=== PATIENT | female | born 1950 | race Caucasian/White ===

== ENCOUNTER 2023-01-27 19:03 | Inpatient (IN) | payer MEDICARE, OTHER ==
[~2023-01-27] VITALS: Ht 157.4 cm; Wt 64.3 kg
[2023-01-27] MEDS ORDERED: LIDOCAINE UROJET 2% GEL 10 ML PKG TOP ONE (19:15)
[2023-01-27] MEDS ORDERED: HYDROmorphone INJECTION 2 MG/ML VIAL IV ONE (19:15)
[2023-01-27] MEDS ORDERED: LACTATED RINGERS 1,000 ML 1,000 ML IV ONE (19:15)
--- NOTE | 2023-01-27 19:18 | ED Fall/Injury ---
General Stated Complaint: FALL Source: patient, EMS History of Present Illness Date Seen by Provider: Jan 27, 2023 Time Seen by Provider: 19:05 Initial Comments PT ARRIVES VIA EMS FROM HOME PT WAS GOING DOWN OUTSIDE STEPS, AND MISSED THE LAST STEP AND FELL, INJURING HER RIGHT THIGH EMS REPORTS OBVIOUS FEMUR DEFORMITY AT THE SCENE, AND TRACTION SPLINT WAS PLACED WITH IMPROVED ALIGNMENT, PER EMS NO PARESTHESIAS OR DISTAL MOTOR DEFICITS PT DENIES HITTING HER HEAD OR HAVING LOSS OF CONSCIOUSNESS NO CHEST PAIN OR SHORTNESS OF BREATH NO ABDOMINAL PAIN PT DOES HAVE SOME PAIN IN LOWER BACK AND RIGHT HIP AREA PT IS ON 81 MG ASPIRIN, NO OTHER BLOOD THINNERS PT HAS HTN, AND 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 ON [place] FOR NEUROPATHY EMS GAVE 150 MCG FENTANYL AND 80 MG KETAMINE PRIOR TO ARRIVAL LAST ATE AROUND 1800--THIS OCCURRED RIGHT AFTER SHE FINISHED EATING. SHE WAS GOING OUTSIDE TO FEED HER CATS AND WAS DISTRACTED BY ONE OF THE CATS WHEN SHE FELL. PCP: DR. Yan LOPES IN [place]. Allergies and Home Medications Allergies Coded Allergies: clindamycin (Verified Allergy, Unknown, 01/27/23) Patient Home Medication List Home Medication List Reviewed: Yes Review of Systems Review of Systems Constitutional: no symptoms reported Respiratory: no symptoms reported Cardiovascular: no symptoms reported Gastrointestinal: no symptoms reported Genitourinary: no symptoms reported Musculoskeletal: see HPI Skin: no symptoms reported Psychiatric/Neurological: No Symptoms Reported Past Wfscedf-[id number]-Hvlfqo Hx Past Medical History Cardiac: Yes Hypertension Physical Exam Vital Signs Vital Signs - First Documented 01/27/23 19:21 Temp 35.4 Pulse 76 Resp 20 B/P (MAP) 147/78 (101) Pulse Ox 98 O2 Delivery Room Air Capillary Refill : Height, Weight, BMI Height: '" Weight: lbs. oz. kg; BMI Method: General Appearance: WD/WN, no apparent distress, other (SCREAMS WITH SLIGHTEST MOVEMENT. ) HEENT: PERRL/EOMI Neck: non-tender, full range of motion, supple, normal inspection Cardiovascular: normal peripheral pulses, regular rate, rhythm, no murmur Respiratory: chest non-tender, normal breath sounds, no respiratory distress, no accessory muscle use Peripheral Pulses: 2+ Dorsalis Pedis (R), 2+ Left Dors-Pedis (L) Gastrointestinal: normal bowel sounds, non tender, soft Back: no CVA tenderness, other (LUMBAR TENDERNESS, LEFT POSTERIOR ILIAC TENDERNESS) Extremities: normal capillary refill, other (RIGHT HIP AND FEMUR TENDERNESS. RIGHT LEG INTERNALLY ROTATED IN TRACTION DEVICE. DISTAL MOTOR/SENSORY/VASCULAR INTACT, WITH STRONG DORSALIS AND PEDAL PULSES ) Neurologic/Psychiatric: finish patcher II-XII nml as tested, no motor/sensory deficits, alert, normal mood/affect, oriented x 3 Skin: normal color, warm/dry [place] Coma Score Best Eye Response: (4) Open Spontaneously Best Verbal Response: (5) Oriented Best Motor Response: (6) Obeys Commands [place] Total: 15 Progress/Results/Core Measures Results/Orders Lab Results Laboratory Tests Test 01/27/23 19:10 01/27/23 19:34 Range/Units White Blood Count 6.8 4.3-11.0 10^3/uL Red Blood Count 4.45 3.80-5.11 10^6/uL Hemoglobin 12.7 11.5-16.0 g/dL Hematocrit 38 35-52 % Mean Corpuscular Volume 86 80-99 fL Mean Corpuscular Hemoglobin 29 25-34 pg Mean Corpuscular Hemoglobin Concent 33 32-36 g/dL Red Cell Distribution Width 15.0 H 10.0-14.5 % Platelet Count 490 H 130-400 10^3/uL Mean Platelet Volume 8.7 L 9.0-12.2 fL Immature Granulocyte % (Auto) 0 % Neutrophils (%) (Auto) 60 42-75 % Lymphocytes (%) (Auto) 27 12-44 % Monocytes (%) (Auto) 10 0-12 % Eosinophils (%) (Auto) 2 0-10 % Basophils (%) (Auto) 0 0-10 % Neutrophils # (Auto) 4.1 1.8-7.8 10^3/uL Lymphocytes # (Auto) 1.9 1.0-4.0 10^3/uL Monocytes # (Auto) 0.7 0.0-1.0 10^3/uL Eosinophils # (Auto) 0.1 0.0-0.3 10^3/uL Basophils # (Auto) 0.0 0.0-0.1 10^3/uL Immature Granulocyte # (Auto) 0.0 0.0-0.1 10^3/uL Percent Immature Platelet Fraction 1.2 0.0-7.6 % Prothrombin Time 12.2 12.2-14.7 SEC INR Comment 0.9 0.8-1.4 Activated Partial Thromboplast Time 23 L 24-35 SEC Sodium Level 132 L 135-145 MMOL/L Potassium Level 3.7 3.6-5.0 MMOL/L Chloride Level 103 98-107 MMOL/L Carbon Dioxide Level 18 L 21-32 MMOL/L Anion Gap 11 5-14 MMOL/L Blood Urea Nitrogen 11 7-18 MG/DL Creatinine 0.82 0.60-1.30 MG/DL Estimat Glomerular Filtration Rate 75 BUN/Creatinine Ratio 13 Glucose Level 125 H 70-105 MG/DL Calcium Level 9.6 8.5-10.1 MG/DL Corrected Calcium 9.5 8.5-10.1 MG/DL Magnesium Level 2.1 1.6-2.4 MG/DL Total Bilirubin 0.4 0.1-1.0 MG/DL Aspartate Amino Transf (AST/SGOT) 26 5-34 U/L Alanine Aminotransferase (ALT/SGPT) 17 0-55 U/L Alkaline Phosphatase 103 40-136 U/L Total Protein 7.0 6.4-8.2 GM/DL Albumin 4.1 3.2-4.5 GM/DL Serum Alcohol < 10 <10 MG/DL Urine Color YELLOW Urine Clarity CLEAR Urine pH 6.0 5-9 Urine Specific [place] 1.015 L 1.016-1.022 Urine Protein NEGATIVE NEGATIVE Urine Glucose (UA) NEGATIVE NEGATIVE Urine Ketones NEGATIVE NEGATIVE Urine Nitrite NEGATIVE NEGATIVE Urine Bilirubin NEGATIVE NEGATIVE Urine Urobilinogen 0.2 < = 1.0 MG/DL Urine Leukocyte Esterase NEGATIVE NEGATIVE Urine RBC (Auto) NEGATIVE NEGATIVE Urine RBC NONE /HPF Urine WBC NONE /HPF Urine Squamous Epithelial Cells NONE /HPF Urine Crystals NONE /LPF Urine Bacteria TRACE /HPF Urine Casts NONE /LPF Urine Mucus NEGATIVE /LPF Urine Culture Indicated NO Urine Opiates Screen NEGATIVE NEGATIVE Urine Oxycodone Screen NEGATIVE NEGATIVE Urine Methadone Screen NEGATIVE NEGATIVE Urine Barbiturates Screen NEGATIVE NEGATIVE Ur Tricyclic Antidepressants Screen NEGATIVE NEGATIVE Urine Phencyclidine Screen NEGATIVE NEGATIVE Urine Amphetamines Screen NEGATIVE NEGATIVE Urine Methamphetamines Screen NEGATIVE NEGATIVE Urine Benzodiazepines Screen NEGATIVE NEGATIVE Urine Cocaine Screen NEGATIVE NEGATIVE Urine Cannabinoids Screen NEGATIVE NEGATIVE My Orders Orders - DEVON SPENCER DO Ct Thoracic/Lumbar Spine Wo (01/27/23 19:10) Chest 1 View, Ap/Pa Only (01/27/23 19:10) Femur, Right, 2 Views (01/27/23 19:10) Pelvis 1 To 2 Views (01/27/23 19:10) Alcohol (01/27/23 19:10) Cbc And Automated Diff (01/27/23 19:10) Comprehensive Metabolic Panel (01/27/23 19:10) Drug Screen Stat (Urine) (01/27/23 19:10) Magnesium (01/27/23 19:10) Protime With Inr (01/27/23 19:10) Partial Thromboplastin Time (01/27/23 19:10) Ua Culture If Indicated (01/27/23 19:10) Ed Iv/Invasive Line Start (01/27/23 19:10) Lactated Ringers 1,000 Ml (Lactated Ring (01/27/23 19:15) Hydromorphone Injection (Hydromorphone (01/27/23 19:15) Catheter(Urinary) Insert & Ass 03,15 (01/27/23 19:10) Monitor-Rhythm Ecg Trace Only (01/27/23 19:10) Lidocaine 2% (Urojet) (Lidocaine 2% (Uro (01/27/23 19:15) Diazepam Injection (Diazepam Injection (01/27/23 20:45) Ed Admission (Communication) (01/27/23 20:44) Medications Given in ED Current Medications Medications Dose Ordered Sig/Kehinde Route Start Time Stop Time Status Last Admin Dose Admin Diazepam 2.5 mg ONCE ONCE IVP 01/27/23 20:45 01/27/23 20:46 DC 01/27/23 20:46 2.5 MG Hydromorphone HCl 0.5 mg ONCE ONCE IV 01/27/23 19:15 01/27/23 19:16 DC 01/27/23 19:16 0.5 MG Lactated Ringer's 1,000 ml @ 0 mls/hr Q0M ONCE IV 01/27/23 19:15 01/27/23 19:16 DC 01/27/23 19:16 0 MLS/HR Lidocaine HCl 10 ml ONCE ONCE TOP 01/27/23 19:15 01/27/23 19:16 DC 01/27/23 19:16 10 ML Vital Signs/I&O 01/27/23 19:21 Temp 35.4 Pulse 76 Resp 20 B/P (MAP) 147/78 (101) Pulse Ox 98 O2 Delivery Room Air Progress Progress Note : Progress Note VITALS ON ARRIVAL: TEMP 35.4=95.8, HR 76, RR 20, BP 147/78, O2 SAT 98% ON ROOM AIR GIVEN: -IV FLUIDS -DILAUDID--PAIN MUCH IMPROVED -VALIUM FOR MUSCLE SPASMS XRAYS SHOW PROXIMAL FEMUR FRACTURE NO OTHER INJURIES IDENTIFIED AT THIS TIME CT OF SPINE DID NOT SHOW ANY ACUTE TRAUMATIC PROCESS VITALS STABLE, AND PAIN IS CONTROLLED AT TIME OF ADMIT. DISCUSSED TEST RESULTS, NEED FOR ADMIT AND LIKELY WILL GO TO SURGERY TOMORROW MORNING. PT IS AGREEABLE TO PLAN NO PRIOR VISITS HERE Diagnostic Imaging Comments CT SCAN THORACIC/LUMBAR SPINE--PER RADIOLOGIST REPORT AT 2009 FINDINGS: There is normal height and alignment throughout the thoracic and lumbar spine. Multilevel degenerative findings predominantly in the lumbar spine noted with bilateral facet hypertrophy throughout. Large spur seen anteriorly. Marked degenerative findings noted at the facets at L4-L5 and L5-S1. No acute fractures or compression deformities. No significant subluxations. The visualized sacroiliac joints demonstrate sclerosis left worse than right perhaps due to prior history of sacroiliitis. Visualized intrathoracic structures demonstrate a nodule in the right upper lobe posteriorly measuring a centimeter in size. Multiple sub-centimeter nodularity seen throughout the left upper lobe. Within the intra-abdominal structures no acute abnormalities appreciated. IMPRESSION: 1. No acute osseous abnormality in the thoracic or lumbar spine with marked degenerative changes in the lower lumbar region. 2. Suspicious nodule in the right upper lobe with multiple less than 5 mm nodules in the left upper lobe. Nonemergent dedicated CT imaging of the chest could further evaluate. ALL PER RADIOLOGIST REPORTS: AT 2129 CXR-- FINDINGS: The cardiomediastinal silhouette is unremarkable. The pulmonary vasculature is within normal limits. The lungs and pleural spaces are clear. IMPRESSION: No evidence of an acute cardiopulmonary process. PELVIS-- Findings: Single view of the pelvis. Kelsey catheter noted. Left hip joint unremarkable. Right hip intact however there is a laterally angulated displaced and foreshortened fracture of the proximal femoral diaphysis. Impression: 1. Proximal right femoral fracture. XRAYS RIGHT FEMUR-- Findings: 2 views of the femur. There is a angulated and displaced fracture of the proximal femoral diaphysis. Foreshortening at the fracture site is seen with anterior displacement and angulation of the proximal femur in relation to the distal femur. Single lateral view of the knee demonstrates an intact joint, limited given the lack of frontal view. Impression: 1. Proximal femoral fracture displaced and angulated as above. Reviewed: Reviewed by Me Departure Communication (Admissions) 2010--SPOKE WITH DR. STEPHENSON, ORTHOPEDIC SURGEON. HE WILL REVIEW FILMS AND CALL BACK 2024--SPOKE WITH DR. STEPHENSON, HE ADVISES TO ADMIT TO HOSPITALIST, AND PLANS ON TAKING TO SURGERY IN THE MORNING. 2029--DISCUSSED WITH DR. RAMOS, HOSPITALIST, ACCEPTS PT FOR ADMIT. SHE WILL DO ADMIT ORDERS. Impression Primary Impression: Closed fracture of right femur Additional Impressions: Fall down steps HTN (hypertension) Neuropathy PULMONARY NODULES NOTED ON CT SCAN Disposition: ADMITTED INPATIENT Condition: Improved Admissions Decision to Admit Reason: Admit from ER (General) Decision to Admit/Date: Jan 27, 2023 Time/Decision to Admit Time: 20:25 DEVON SPENCER DO Jan 27, 2023 19:18
[2023-01-27 19:19] LABS: EOSINOPHILS # (AUTO) 0.1 10^3/uL (0.0-0.3)
[2023-01-27 19:21] LABS: BASOPHILS % (AUTO) 0 % (0-10); EOSINOPHILS % (AUTO) 2 % (0-10); HEMATOCRIT 38 % (35-52); HEMOGLOBIN 12.7 g/dL (11.5-16.0); LYMPHOCYTES # (AUTO) 1.9 10^3/uL (1.0-4.0); LYMPHOCYTES % (AUTO) 27 % (12-44); MEAN CORPUSCULAR HEMOGLOBIN 29 pg (25-34); MEAN CORPUSCULAR HGB CONC 33 g/dL (32-36); MEAN CORPUSCULAR VOLUME 86 fL (80-99); MEAN PLATELET VOLUME 8.7 fL (9.0-12.2); MONOCYTES # (AUTO) 0.7 10^3/uL (0.0-1.0); MONOCYTES % (AUTO) 10 % (0-12); NEUTROPHILS # (AUTO) 4.1 10^3/uL (1.8-7.8); NEUTROPHILS % (AUTO) 60 % (42-75); PLATELET COUNT 490 10^3/uL (130-400); WHITE BLOOD COUNT 6.8 10^3/uL (4.3-11.0)
[2023-01-27 19:37] LABS: INR 0.9 (0.8-1.4); PROTHROMBIN TIME PATIENT 12.2 SEC (12.2-14.7)
[2023-01-27 19:50] LABS: BILIRUBIN,URINE NEGATIVE (NEGATIVE); CLARITY,URINE CLEAR; COLOR,URINE YELLOW; GLUCOSE, URINE (UA) NEGATIVE (NEGATIVE); KETONES,URINE NEGATIVE (NEGATIVE); NITRITE,URINE NEGATIVE (NEGATIVE); PROTEIN,URINE NEGATIVE (NEGATIVE)
[2023-01-27 19:51] LABS: BACTERIA,URINE TRACE /HPF; LEUKOCYTE ESTERASE ,URINE NEGATIVE (NEGATIVE)
[2023-01-27 19:51] LABS: ALANINE AMINOTRANSFERASE 17 U/L (0-55); ALBUMIN 4.1 GM/DL (3.2-4.5); ALKALINE PHOSPHATASE 103 U/L (40-136); BILIRUBIN,TOTAL 0.4 MG/DL (0.1-1.0); BUN/CREATININE RATIO 13; CALCIUM 9.6 MG/DL (8.5-10.1); CARBON DIOXIDE 18 MMOL/L (21-32); CHLORIDE 103 MMOL/L (98-107); CREATININE SERUM 0.82 MG/DL (0.60-1.30); GFR ESTIMATED 75; GLUCOSE 125 MG/DL (70-105); MAGNESIUM 2.1 MG/DL (1.6-2.4); POTASSIUM 3.7 MMOL/L (3.6-5.0); SODIUM 132 MMOL/L (135-145)
--- NOTE | 2023-01-27 20:06 | Diagnostic Imaging Report ---
PROCEDURE: CT thoracic and lumbar spine without contrast. TECHNIQUE: Multiple contiguous axial images were obtained through the thoracic and lumbar spine without the use of intravenous contrast. Sagittal and coronal reformations were then performed. All CT scans use one or more of the following dose optimizing techniques: automated exposure control, MA and/or KvP adjustment based on a patient size and exam type, or iterative reconstruction. INDICATION: Back pain after injury. EXAMINATION: Thoracic and lumbar spine CT 01/27/2023 FINDINGS: There is normal height and alignment throughout the thoracic and lumbar spine. Multilevel degenerative findings predominantly in the lumbar spine noted with bilateral facet hypertrophy throughout. Large spur seen anteriorly. Marked degenerative findings noted at the facets at L4-L5 and L5-S1. No acute fractures or compression deformities. No significant subluxations. The visualized sacroiliac joints demonstrate sclerosis left worse than right perhaps due to prior history of sacroiliitis. Visualized intrathoracic structures demonstrate a nodule in the right upper lobe posteriorly measuring a centimeter in size. Multiple sub-centimeter nodularity seen throughout the left upper lobe. Within the intra-abdominal structures no acute abnormalities appreciated. IMPRESSION: 1. No acute osseous abnormality in the thoracic or lumbar spine with marked degenerative changes in the lower lumbar region. 2. Suspicious nodule in the right upper lobe with multiple less than 5 mm nodules in the left upper lobe. Nonemergent dedicated CT imaging of the chest could further evaluate. Dictated by: Dictated on workstation # [id number]
[2023-01-27 20:07] LABS: AMPHETAMINE SCREEN, URINE NEGATIVE (NEGATIVE); BARBITURATE SCREEN URINE NEGATIVE (NEGATIVE); CANNABINOID SCREEN, URINE NEGATIVE (NEGATIVE); COCAINE SCREEN URINE NEGATIVE (NEGATIVE); METHADONE STAT NEGATIVE (NEGATIVE); OPIATE SCREEN URINE NEGATIVE (NEGATIVE); OXYCODONE STAT NEGATIVE (NEGATIVE); TRICYCLIC ANTIDEPRESSANTS SCRE NEGATIVE (NEGATIVE)
--- NOTE | 2023-01-27 20:20 | Diagnostic Imaging Report ---
Indication: Pain after fall. Examination: Pelvis 01/27/2023 Findings: Single view of the pelvis. Kelsey catheter noted. Left hip joint unremarkable. Right hip intact however there is a laterally angulated displaced and foreshortened fracture of the proximal femoral diaphysis. Impression: 1. Proximal right femoral fracture. Dictated by: Dictated on workstation # [id number]
--- NOTE | 2023-01-27 20:21 | Diagnostic Imaging Report ---
INDICATION: Fall, pain EXAMINATION: Chest 01/27/2023 FINDINGS: The cardiomediastinal silhouette is unremarkable. The pulmonary vasculature is within normal limits. The lungs and pleural spaces are clear. IMPRESSION: No evidence of an acute cardiopulmonary process. Dictated by: Dictated on workstation # [id number]
--- NOTE | 2023-01-27 20:21 | Diagnostic Imaging Report ---
Indication: Fall, pain. Examination: Right femur 01/27/2023 Findings: 2 views of the femur. There is a angulated and displaced fracture of the proximal femoral diaphysis. Foreshortening at the fracture site is seen with anterior displacement and angulation of the proximal femur in relation to the distal femur. Single lateral view of the knee demonstrates an intact joint, limited given the lack of frontal view. Impression: 1. Proximal femoral fracture displaced and angulated as above. Dictated by: Dictated on workstation # [id number]
[2023-01-27] MEDS ORDERED: diazePAM INJ 10 MG/2 ML syringe IVP ONE (20:45)
[2023-01-27 22:08] VITALS: BP 131/63
[2023-01-27] MEDS ORDERED: MELATONIN 3 MG TABLET PO PRN (22:15)
[2023-01-27] MEDS ORDERED: CALCIUM CARBONATE 500 MG CHEW TABLET PO PRN (22:15)
[2023-01-27] MEDS ORDERED: oxyCODONE IMMEDIATE RELEASE 5 MG TABLET PO PRN (22:15)
[2023-01-27] MEDS ORDERED: LACTULOSE SYRUP 10GM/15ML 30ML UDC PO PRN (22:15)
[2023-01-27] MEDS ORDERED: MILK OF MAGNESIA 400 MG/5 ML 30 ML UDC PO PRN (22:15)
[2023-01-27] MEDS ORDERED: ONDANSETRON 4 MG ORAL DISSOLVE TABLET PO PRN (22:15)
[2023-01-27] MEDS ORDERED: diazePAM 2 MG TABLET PO PRN (22:15)
[2023-01-27] MEDS ORDERED: hydrALAZINE INJECTION 20 MG/ML VIAL IV PRN (22:15)
[2023-01-27] MEDS ORDERED: ONDANSETRON INJECTION 4 MG/2 ML (SDV) IV PRN (22:15)
[2023-01-27] MEDS ORDERED: ANTACID SUSPENSION 30 ML UDC PO PRN (22:15)
[2023-01-27] MEDS ORDERED: diazePAM INJ 10 MG/2 ML syringe IVP PRN (22:15)
[2023-01-27] MEDS ORDERED: diphenhydrAMINE INJ 50 MG/ML VIAL IVP PRN (22:15)
[2023-01-27] MEDS ORDERED: diphenhydrAMINE 25 MG TABLET PO PRN (22:15)
[2023-01-27] MEDS ORDERED: BISACODYL 10 MG SUPPOSITORY PR PRN (22:15)
[2023-01-27] MEDS ORDERED: ACETAMINOPHEN 325 MG TABLET PO PRN (22:15)
[2023-01-27 22:59] VITALS: BP 131/63
[2023-01-27] MEDS ORDERED: RT-ALBUTEROL SULF 2.5 MG/3 ML PRE-MIX VIAL INH PRN (23:15)
[2023-01-27 23:19] VITALS: BP 129/61
[2023-01-28] VITALS (13 sets, daily range): BP systolic 100–154; BP diastolic 43–83
[2023-01-28] MEDS: NS IV 1000 ML 1,000 ML IV SCH ×3 (00:17→20:29)
[2023-01-28] MEDS: HYDROmorphone INJECTION 2 MG/ML VIAL IV PRN ×4 (00:18→10:06)
[2023-01-28 06:21] LABS: BASOPHILS % (AUTO) 0 % (0-10); EOSINOPHILS # (AUTO) 0.1 10^3/uL (0.0-0.3); EOSINOPHILS % (AUTO) 1 % (0-10); HEMATOCRIT 34 % (35-52); HEMOGLOBIN 11.1 g/dL (11.5-16.0); LYMPHOCYTES # (AUTO) 0.9 10^3/uL (1.0-4.0); LYMPHOCYTES % (AUTO) 13 % (12-44); MEAN CORPUSCULAR HEMOGLOBIN 28 pg (25-34); MEAN CORPUSCULAR HGB CONC 33 g/dL (32-36); MEAN CORPUSCULAR VOLUME 86 fL (80-99); MEAN PLATELET VOLUME 9.1 fL (9.0-12.2); MONOCYTES # (AUTO) 0.7 10^3/uL (0.0-1.0); MONOCYTES % (AUTO) 10 % (0-12); NEUTROPHILS # (AUTO) 5.2 10^3/uL (1.8-7.8); NEUTROPHILS % (AUTO) 76 % (42-75); PLATELET COUNT 416 10^3/uL (130-400); WHITE BLOOD COUNT 6.8 10^3/uL (4.3-11.0)
[2023-01-28 06:30] LABS: ALBUMIN 3.1 GM/DL (3.2-4.5); POTASSIUM 4.2 MMOL/L (3.6-5.0)
[2023-01-28 06:32] LABS: CALCIUM 8.5 MG/DL (8.5-10.1)
[2023-01-28 06:33] LABS: TOTAL PROTEIN 5.3 GM/DL (6.4-8.2)
[2023-01-28 06:35] LABS: BILIRUBIN,TOTAL 0.4 MG/DL (0.1-1.0)
[2023-01-28 06:36] LABS: CREATININE SERUM 0.75 MG/DL (0.60-1.30)
--- NOTE | 2023-01-28 07:20 | Progress Note-Pre Operative ---
Pre-Operative Progress Note Date of Available H&P: Jan 28, 2023 Date H&P Reviewed: Jan 28, 2023 Time H&P Reviewed: 07:20 Changes from last HP none Pre-Operative Diagnosis: right femoral shaft fracture closed, displaced RAMEZ STEPHENSON MD Jan 28, 2023 07:20
--- NOTE | 2023-01-28 07:21 | Progress Note-Post Operative ---
Post-Operative Progess Note Surgeon (s)/Education Administrator (s) Surgeon RAMEZ STEPHENSON MD Education Administrator: Wally Randolph Pre-Operative Diagnosis right femoral shaft fracture closed, displaced Post-Operative Diagnosis right femoral shaft fracture closed, displaced Procedure & Operative Findings Date of Procedure 01/28/23 Procedure Performed/Findings right femur IM nail Anesthesia Type GETA Estimated Blood Loss Estimated blood loss (mL): 200ml Specimens/Packing Specimens Removed none Packing: none RAMEZ STEPHENSON MD Jan 28, 2023 07:21
--- NOTE | 2023-01-28 07:49 | CONSULTATION REPORT ---
DATE OF SERVICE: 01/28/2023 INPATIENT CONSULTATION REASON FOR CONSULTATION: Closed displaced right femoral shaft fracture. HISTORY OF PRESENT ILLNESS: The patient is a 72-year-old female who fell at home. She missed a step while outside landing on her right leg, presented to the Emergency Department where she was found to have a proximal right femoral shaft fracture. She denies antecedent pain. She has been treated with Fosamax in the remote past but not recently. She reports no paresthesias. PAST MEDICAL HISTORY: Breast cancer, neuropathy. PHYSICAL EXAMINATION: ORTHOPEDIC: The right lower extremity is shortened and externally rotated. She has intact dorsiflexion and plantarflexion of the toes. Sensation is symmetric. She has symmetric pulses. RADIOGRAPHS: Reveal a displaced right femoral shaft fracture proximally. IMPRESSION: Right femoral shaft fracture. PLAN: Right femur intramedullary nail. The risks, benefits, options, ramifications and recovery have been discussed at length with the patient. She understands and wishes to proceed. Job ID: [id number] DocumentID: [id number] Dictated Date: 01/28/2023 07:20:04 Faucets Assembler Date: 01/28/2023 07:47:00 Dictated By: RAMEZ STEPHENSON MD
--- NOTE | 2023-01-28 09:27 | History & Physical ---
IKER ROSENTHAL 01/28/23926: History of Present Illness History of Present Illness Reason for visit/HPI Vilma is a 72 yo F with a PMH of HTN, anemia and neuropathy who presented to the ED yesterday By EMS from home with a cc of right thigh pain due to a fall she'd sustained roughly 1 hour prior. Per EMS, the patient has an obvious femur deformity necessitated placement of a traction splint which improved alignement. Patient denied hitting or head or use of blood thinners other than aspirin. XR demonstrated proximal femur fracture without other injury and CT spine was negative for acute traumatic process. She was given dilaudid, valium and IVF and admitted inpatient for surgical evaluation. This morning, the reports some improvement in hip pain and muscle spasms but still rates overall pain in the region 09/01. Otherwise she is comfortable. She states orthopedic surgery is planning to operate around 1230 PM today. Date of Admission Jan 27, 2023 at 21:42 I consulted on this patient on 01/28/23 09:24 Attending Physician No,Local Physician Admitting Physician Admitting Physician: Brenda Ramos DO Attending Physician: Brenda Ramos DO Consult Allergies and Home Medications Allergies Coded Allergies: clindamycin (Verified Allergy, Unknown, 01/27/23) Patient Home Medication List Aspirin (Aspirin EC) 81 Mg Tablet., 81 MG PO DAILY, (Reported) Entered as Reported by: CONCHITA SANCHEZ on 01/28/231230 Last Action: Reviewed Calcium Carbonate (Calcium) 500 Mg Calcium (1250 Mg) Tablet, 500 MG PO DAILY, (Reported) Entered as Reported by: CONCHITA SANCHEZ on 01/28/231230 Last Action: Reviewed Cholecalciferol (Vitamin D3) (Vitamin D3) 25 Mcg (1000 Unit) Tablet, 25 MCG PO DAILY, (Reported) Entered as Reported by: CONCHITA SANCHEZ on 01/28/231230 Last Action: Reviewed Diclofenac Sodium (Diclofenac Sodium) 75 Mg Tablet., 75 MG PO BID PRN for PAIN-MILD (1-4), (Reported) Entered as Reported by: CONCHITA SANCHEZ on 01/28/231230 Last Action: Reviewed Dicyclomine HCl (Dicyclomine HCl) 20 Mg Tablet, 20 MG PO BID, (Reported) Entered as Reported by: CONCHITA SANCHEZ on 01/28/231230 Last Action: Reviewed Folic Acid (Folic Acid) 1 Mg Tablet, 1 MG PO DAILY, (Reported) Entered as Reported by: CONCHITA SANCHEZ on 01/28/231230 Last Action: Reviewed Lactobacillus Acidophilus (Probiotic) 10 Billion Cell Capsule, 1 EACH PO BID, (Reported) Entered as Reported by: CONCHITA SANCHEZ on 01/28/231230 Last Action: Reviewed Levothyroxine Sodium (Levothyroxine Sodium) 75 Mcg Tablet, 75 MCG PO DAILY, (Reported) Entered as Reported by: CONCHITA SANCHEZ on 01/28/231230 Last Action: Reviewed Lisinopril (Lisinopril) 20 Mg Tablet, 20 MG PO DAILY, (Reported) Entered as Reported by: CONCHITA SANCHEZ on 01/28/231230 Last Action: Reviewed Pregabalin (Pregabalin) 50 Mg Capsule, 50 MG PO DAILY, (Reported) Entered as Reported by: CONCHITA SANCHEZ on 01/28/231230 Last Action: Reviewed Past Cbqfxsj-Myguld-Hcbebp Hx Patient Social History Tobacco Use?: No Tobacco type used: Cigarettes Smoking Status: Former Smoker Smokeless Tobacco Frequency: Never a User Use of E-Cig and/or Vaping dev: No Use of E-Cig and/or Vaping Lew: Never a User Substance use?: No Alcohol Use?: No Pt feels they are or have been: No Immunizations Up To Date Date of Influenza Vaccine: Nov 27, 2022 First/Initial COVID19 Vaccinat: x5 Tetanus Booster (TDap): Less Than 5 Years Hepatitis A: No Hepatitis B: No Current Status status: No status: No Advance Directives: No Communicates: Verbally Primary Language: Angolan Preferred Spoken Language: Angolan Is interpretation needed?: No Past Medical History Hypertension Physical Exam Vital Signs Vital Signs - First Documented 01/27/23 01/27/23 19:21 22:59 Temp 35.4 Pulse 76 Resp 20 B/P (MAP) 147/78 (101) Pulse Ox 98 O2 Delivery Room Air FiO2 21 Capillary Refill : Less Than 3 Seconds Height, Weight, BMI Height: '" Weight: lbs. oz. kg; 25.95 BMI Method: General Appearance: No Apparent Distress Respiratory: Lungs Clear Cardiovascular: Regular Rate, Rhythm Gastrointestinal: Normal Bowel Sounds Neurologic/Psychiatric: Alert, Oriented x3 Skin: Normal Color, Warm/Dry Assessment/Plan Assessment and Plan Left hip pain Left femur fracture - CT spine 01/27 negative for acute traumatic process - Orthopedics planning for surgery at 1230 PM today - Continue IV fluids - Continue pain control Acute on chronic anemia - Hb 11.1 from 12.7 on admission - Likely due to hemodilution - Continue to monitor Admission Diagnosis Left femur fracture Clinical Quality Measures DVT/VTE Risk/Contraindication: Contraindications-Pharm: Other *list below* Other: or BRENDA RAMOS DO 01/29/23 0520: History of Present Illness History of Present Illness Reason for visit/HPI chief complaint: Fall with right hip fracture HPI: This is a 72-year-old female who has a past medical history of neuropathy who presented to the ER after sustaining a fall. She was found to have a right femoral fracture and will be repaired today. Date Seen by a Provider: Jan 28, 2023 Time Seen by a Provider: 11:00 Allergies and Home Medications Allergies Coded Allergies: clindamycin (Verified Allergy, Unknown, 01/27/23) Patient Home Medication List Home Medication List Reviewed: Yes Aspirin (Aspirin EC) 81 Mg Tablet., 81 MG PO DAILY, (Reported) Entered as Reported by: CONCHITA SANCHEZ on 01/28/231230 Last Action: Reviewed Calcium Carbonate (Calcium) 500 Mg Calcium (1250 Mg) Tablet, 500 MG PO DAILY, (Reported) Entered as Reported by: CONCHITA SANCHEZ on 01/28/231230 Last Action: Reviewed Cholecalciferol (Vitamin D3) (Vitamin D3) 25 Mcg (1000 Unit) Tablet, 25 MCG PO DAILY, (Reported) Entered as Reported by: CONCHITA SANCHEZ on 01/28/231230 Last Action: Reviewed Diclofenac Sodium (Diclofenac Sodium) 75 Mg Tablet., 75 MG PO BID PRN for PAIN-MILD (1-4), (Reported) Entered as Reported by: CONCHITA SANCHEZ on 01/28/231230 Last Action: Reviewed Dicyclomine HCl (Dicyclomine HCl) 20 Mg Tablet, 20 MG PO BID, (Reported) Entered as Reported by: CONCHITA SANCHEZ on 01/28/231230 Last Action: Reviewed Folic Acid (Folic Acid) 1 Mg Tablet, 1 MG PO DAILY, (Reported) Entered as Reported by: CONCHITA SANCHEZ on 01/28/231230 Last Action: Reviewed Lactobacillus Acidophilus (Probiotic) 10 Billion Cell Capsule, 1 EACH PO BID, (Reported) Entered as Reported by: CONCHITA SANCHEZ on 01/28/231230 Last Action: Reviewed Levothyroxine Sodium (Levothyroxine Sodium) 75 Mcg Tablet, 75 MCG PO DAILY, (Reported) Entered as Reported by: CONCHITA SANCHEZ on 01/28/231230 Last Action: Reviewed Lisinopril (Lisinopril) 20 Mg Tablet, 20 MG PO DAILY, (Reported) Entered as Reported by: CONCHITA SANCHEZ on 01/28/231230 Last Action: Reviewed Pregabalin (Pregabalin) 50 Mg Capsule, 50 MG PO DAILY, (Reported) Entered as Reported by: CONCHITA SANCHEZ on 01/28/231230 Last Action: Reviewed Past Wwoaase-Mliyhv-Mkeqab Hx Patient Social History Marrital Status: Employed/Student: retired Smoking Status: Never a Smoker Past Medical History Neuropathy Hypothyroidsim Review of Systems Constitutional: see HPI Physical Exam General Appearance: No Apparent Distress, WD/WN Eyes: Bilateral Eye Normal Inspection, Bilateral Eye PERRL, Bilateral Eye EOMI HEENT: PERRL/EOMI, Normal ENT Inspection, Pharynx Normal Neck: Full Range of Motion, Normal Inspection, Non Tender, Supple, Carotid Bruit Respiratory: Chest Non Tender, Lungs Clear, Normal Breath Sounds, No Accessory Muscle Use, No Respiratory Distress Cardiovascular: Regular Rate, Rhythm, No Edema, No Gallop, No JVD, No Murmur, Normal Peripheral Pulses Gastrointestinal: Normal Bowel Sounds, No Organomegaly, No Pulsatile Mass, Non Tender, Soft Back: Normal Inspection, No CVA Tenderness, No Vertebral Tenderness Extremity: Normal Capillary Refill, Normal Inspection, Normal Range of Motion (Except legs due to pain), Non Tender, No Calf Tenderness, No Pedal Edema Neurologic/Psychiatric: Alert, Oriented x3, No Motor/Sensory Deficits, Normal Mood/Affect Skin: Normal Color, Warm/Dry Lymphatic: No Adenopathy Assessment/Plan Assessment and Plan Assessment: Right femur fracture Severe neuropathy Hypothyroidism Plan: Repair today Check labs in morning Pain control IV fluids Kelsey catheter Inpatient rehab tomorrow Admission Diagnosis Admission Status: Inpatient Order (span 2 midnights) Reason for Inpatient Admission: Hip fracture Supervisory-Addendum Brief Verification & Attestation Participated in pt care: history, MDM, physical Personally performed: exam, history, MDM, supervision of care Care discussed with: Medical Student Procedures: n/a Results interpretation: Verified all documentation Verification and Attestation of Medical Student E/M Service A medical student performed and documented this service in my presence. I reviewed and verified all information documented by the medical student and made modifications to such information, when appropriate. I personally performed the physical exam and medical decision making. Brenda Ramos, Jan 29, 2023,05:20 IKER ROSENTHAL Jan 28, 2023 09:27 BRENDA RAMOS DO Jan 29, 2023 05:20
[2023-01-28] MEDS: DOCUSATE SODIUM 100 MG CAPSULE PO SCH ×2 (09:36→20:29)
[2023-01-28] MEDS: SENNOSIDES 8.6 MG TABLET PO SCH ×2 (09:36→20:29)
[2023-01-28] MEDS ORDERED: NALOXONE 0.4 MG/ML 1 ML VIAL IV PRN (11:15)
[2023-01-28] MEDS ORDERED: ONDANSETRON INJECTION 4 MG/2 ML (SDV) IVP PRN ×2 (11:15→12:45)
[2023-01-28] MEDS ORDERED: oxyCODONE/ACETAMINOPHEN 5/325MG TABLET PO PRN (11:15)
[2023-01-28] MEDS ORDERED: ceFAZolin INJECTION 2,000 MG in NS (IVPB) 50 ML 50 ML IV ONE (12:30)
[2023-01-28] MEDS ORDERED: LISI20TA26 PO (12:31)
[2023-01-28] MEDS ORDERED: PREG50CA66 PO (12:31)
[2023-01-28] MEDS ORDERED: CALC-823 PO (12:31)
[2023-01-28] MEDS ORDERED: DICL75TA2 PO (12:31)
[2023-01-28] MEDS ORDERED: LACT1CAP62 PO (12:31)
[2023-01-28] MEDS ORDERED: ASPI-1238 PO (12:31)
[2023-01-28] MEDS ORDERED: DICY20TA PO (12:31)
[2023-01-28] MEDS ORDERED: FOLI1TAB33 PO (12:31)
[2023-01-28] MEDS ORDERED: LEVO75TA6 PO (12:31)
[2023-01-28] MEDS ORDERED: CHOL10004 PO (12:31)
[2023-01-28] MEDS: HYDROmorphone INJECTION 2 MG/ML VIAL IVP PRN (12:35)
[2023-01-28] MEDS ORDERED: morphine INJ 10 MG/ML 1ML (SYR OR VIAL) IVP ONE (12:45)
[2023-01-28] MEDS ORDERED: HYDROmorphone INJECTION 2 MG/ML VIAL IV ONE (12:45)
[2023-01-28] MEDS ORDERED: BUPIVACAINE 0.25% 30 ML VIAL ONE (13:19)
[2023-01-28] MEDS ORDERED: dexAMETHasone INJ 10 MG/ML 1 ML VIAL ONE (13:20)
[2023-01-28] MEDS ORDERED: ONDANSETRON INJECTION 4 MG/2 ML (SDV) ONE (13:20)
[2023-01-28] MEDS ORDERED: proPOfol INJECTION 200 MG/20 ML VIAL IV ONE (13:20)
[2023-01-28] MEDS ORDERED: LIDOCAINE PF 2% 5 ML VIAL ONE (13:20)
[2023-01-28] MEDS ORDERED: fentaNYL INJECTION 100 MCG/2 ML VIAL ONE (13:20)
[2023-01-28] MEDS ORDERED: LACTATED RINGERS 1,000 ML 1,000 ML IV PRN (13:45)
[2023-01-28] MEDS ORDERED: PHENYLEPHRINE 100 MCG/ML 10 ML (ANESTHESIA) SYR ONE ×2 (13:50→14:43)
[2023-01-28] MEDS ORDERED: SEVOFLURANE (ULTANE) 15 ML INHAL SOLN ONE (14:43)
[2023-01-28] MEDS ORDERED: BUPIVACAINE 0.25% 30 ML VIAL INJ ONE (14:54)
[2023-01-28] MEDS ORDERED: HYDROmorphone INJECTION 2 MG/ML VIAL ONE (15:11)
--- NOTE | 2023-01-28 16:51 | Diagnostic Imaging Report ---
INDICATION: Femur fracture. Five views are obtained with the portable intensifier in surgery during intramedullary andra placement for femoral shaft fracture. 120.4 seconds of fluoroscopy time was used. 9.24 mGy and exposure. Intraoperative views demonstrate intramedullary andra in place in the femoral shaft with anatomic alignment of the proximal femoral shaft fracture. Fixation screw is seen in the femoral neck. IMPRESSION: Well-aligned femoral shaft fracture status post ORIF. Dictated by: Dictated on workstation # [id number]
[2023-01-28] MEDS: ceFAZolin INJECTION 2,000 MG in NS (IVPB) 50 ML 50 ML IV SCH (20:29)
--- NOTE | 2023-01-28 23:52 | OPERATIVE REPORT ---
DATE OF SERVICE: 01/27/2023 PREOPERATIVE DIAGNOSIS: Right proximal femoral shaft fracture, closed displaced. POSTOPERATIVE DIAGNOSIS: Right proximal femoral shaft fracture, closed displaced. PROCEDURE: Right femur intramedullary nail. SURGEON: Red Stephenson MD BLOOD COLLECTOR: Wally Randolph, who assisted throughout the procedure and closed the incisions. ANESTHESIA: General endotracheal by Dr. Guillen. ESTIMATED BLOOD LOSS: 200 mL. DRAINS: None. COMPLICATIONS: None. MATERIALS: Synthes TFN 380 mm x 11 mm nail with a 95 mm proximal screw and a 42 mm distal screw. The patient was transferred to recovery room, awake and stable condition. POSTOPERATIVE PLAN: 50% weightbearing, right lower extremity. STATEMENT OF MEDICAL NECESSITY: The patient is a 72-year-old female who fell at home and was found to have a proximal femoral shaft fracture on the right. The patient was counseled regarding treatment options and elected to proceed with surgical intervention. DESCRIPTION OF PROCEDURE: After risks and benefits of the procedure were discussed and questions were answered and informed consent was signed and placed on chart. The operative site was confirmed in the preoperative holding area initialed by surgeon. The patient was then transferred to the operating room and after adequate levels of general endotracheal anesthetic were obtained, a timeout was called, confirming the operative site. The patient was carefully placed on the fracture table and traction was applied. Fluoroscopy in the AP and lateral planes revealed a well-reduced fracture. The right hip and lower extremity were then prepped and draped in the usual sterile fashion. An incision was made from the proximal aspect of the greater trochanter extending proximally approximately 6 cm. The IT band was incised. The guidewire was passed and found to be in excellent position radiographically in the AP and lateral planes. This was then overreamed and then a long guidewire was passed across the fracture site. This was confirmed well positioned in the AP and lateral planes. The canal was then sequentially reamed up to a 12.5 mm. A 380 mm x 11 mm andra was then placed and this showed a well-reduced fracture and good length, through a percutaneous incision, the guidewire was passed into the femoral head. This was found to be in good position in the AP and lateral planes. This was then overdrilled and tapped, and a 95 mm screw was placed using the perfect [place] technique, a distal locking screw was placed in the dynamic slot. This was found to be well positioned in the AP and lateral planes. Fluoroscopy revealed well placed hardware, well reduced fracture. The wounds were copiously irrigated. The iliotibial band was closed proximally with a 0 Vicryl in a wtcwfm-qx-maraj interrupted fashion, 3-0 Vicryl was used to reapproximate subcutaneous tissue at the three incisions and mary anne were used for the skin. The incisions were infiltrated with plain Marcaine. A soft dressing was applied. The patient was transferred to the recovery room awake and in stable condition. Job ID: [id number] DocumentID: [id number] Dictated Date: 01/28/2023 14:43:26 Licensed Bondsman Date: 01/28/2023 23:50:00 Dictated By: RED STEPHENSON MD
[2023-01-29 03:38] VITALS: BP 98/56
[2023-01-29] MEDS: NS IV 1000 ML 1,000 ML IV SCH (04:27)
[2023-01-29] MEDS: ceFAZolin INJECTION 2,000 MG in NS (IVPB) 50 ML 50 ML IV SCH (04:43)
[2023-01-29 05:36] LABS: BASOPHILS % (AUTO) 0 % (0-10); EOSINOPHILS % (AUTO) 0 % (0-10); HEMATOCRIT 27 % (35-52); LYMPHOCYTES # (AUTO) 0.6 10^3/uL (1.0-4.0); LYMPHOCYTES % (AUTO) 7 % (12-44); MEAN CORPUSCULAR HEMOGLOBIN 29 pg (25-34); MEAN CORPUSCULAR HGB CONC 34 g/dL (32-36); MEAN CORPUSCULAR VOLUME 86 fL (80-99); MEAN PLATELET VOLUME 9.3 fL (9.0-12.2); MONOCYTES # (AUTO) 0.7 10^3/uL (0.0-1.0); MONOCYTES % (AUTO) 8 % (0-12); NEUTROPHILS # (AUTO) 7.3 10^3/uL (1.8-7.8); NEUTROPHILS % (AUTO) 85 % (42-75); PLATELET COUNT 372 10^3/uL (130-400); WHITE BLOOD COUNT 8.6 10^3/uL (4.3-11.0)
[2023-01-29 05:43] LABS: ALBUMIN 2.9 GM/DL (3.2-4.5); POTASSIUM 4.1 MMOL/L (3.6-5.0)
[2023-01-29 05:44] LABS: CALCIUM 7.9 MG/DL (8.5-10.1)
[2023-01-29 05:46] LABS: TOTAL PROTEIN 4.9 GM/DL (6.4-8.2)
[2023-01-29 05:47] LABS: BILIRUBIN,TOTAL 0.5 MG/DL (0.1-1.0)
[2023-01-29 05:49] LABS: CREATININE SERUM 0.78 MG/DL (0.60-1.30)
[2023-01-29] MEDS: HYDROmorphone INJECTION 2 MG/ML VIAL IVP PRN (06:09)
[2023-01-29] MEDS ORDERED: ETODOLAC 300 MG PO PRN (06:30)
[2023-01-29] MEDS ORDERED: LEVOTHYROXINE 75 MCG TABLET PO SCH (07:00)
--- NOTE | 2023-01-29 07:57 | Progress Note ---
Standard Progress Note Progress Notes/Assess & Plan Date Seen by a Provider: Jan 29, 2023 Time Seen by a Provider: 07:45 Progress/Assessment & Plan no complaints Laboratory Tests Test 01/29/23 05:09 Range/Units White Blood Count 8.6 4.3-11.0 10^3/uL Red Blood Count 3.11 L 3.80-5.11 10^6/uL Hemoglobin 9.0 L 11.5-16.0 g/dL Hematocrit 27 L 35-52 % Mean Corpuscular Volume 86 80-99 fL Mean Corpuscular Hemoglobin 29 25-34 pg Mean Corpuscular Hemoglobin Concent 34 32-36 g/dL Red Cell Distribution Width 15.2 H 10.0-14.5 % Platelet Count 372 130-400 10^3/uL Mean Platelet Volume 9.3 9.0-12.2 fL Immature Granulocyte % (Auto) 0 % Neutrophils (%) (Auto) 85 H 42-75 % Lymphocytes (%) (Auto) 7 L 12-44 % Monocytes (%) (Auto) 8 0-12 % Eosinophils (%) (Auto) 0 0-10 % Basophils (%) (Auto) 0 0-10 % Neutrophils # (Auto) 7.3 1.8-7.8 10^3/uL Lymphocytes # (Auto) 0.6 L 1.0-4.0 10^3/uL Monocytes # (Auto) 0.7 0.0-1.0 10^3/uL Eosinophils # (Auto) 0.0 0.0-0.3 10^3/uL Basophils # (Auto) 0.0 0.0-0.1 10^3/uL Immature Granulocyte # (Auto) 0.0 0.0-0.1 10^3/uL Sodium Level 131 L 135-145 MMOL/L Potassium Level 4.1 3.6-5.0 MMOL/L Chloride Level 104 98-107 MMOL/L Carbon Dioxide Level 21 21-32 MMOL/L Anion Gap 6 5-14 MMOL/L Blood Urea Nitrogen 8 7-18 MG/DL Creatinine 0.78 0.60-1.30 MG/DL Estimat Glomerular Filtration Rate 80 BUN/Creatinine Ratio 10 Glucose Level 127 H 70-105 MG/DL Calcium Level 7.9 L 8.5-10.1 MG/DL Corrected Calcium 8.8 8.5-10.1 MG/DL Total Bilirubin 0.5 0.1-1.0 MG/DL Aspartate Amino Transf (AST/SGOT) 20 5-34 U/L Alanine Aminotransferase (ALT/SGPT) 11 0-55 U/L Alkaline Phosphatase 73 40-136 U/L Total Protein 4.9 L 6.4-8.2 GM/DL Albumin 2.9 L 3.2-4.5 GM/DL Vital Signs Date Time Temp Pulse Resp B/P (MAP) Pulse Ox O2 Delivery O2 Flow Rate FiO2 01/29/23 07:00 76 01/29/23 03:38 36.5 83 18 98/56 (70) 97 Room Air 01/29/23 01:16 69 01/28/23 23:42 36.4 75 18 102/60 (74) 96 Room Air 01/28/23 20:19 36.8 86 19 102/64 (77) 98 Room Air 01/28/23 19:50 78 01/28/23 15:50 Room Air 01/28/23 15:50 36.6 20 104/61 (75) 98 Room Air 01/28/23 15:47 36.8 80 18 100/43 (62) 97 Room Air 01/28/23 15:45 Room Air 01/28/23 15:40 20 107/52 (70) 95 Room Air 01/28/23 15:30 20 107/52 (70) 95 Room Air 01/28/23 15:30 Room Air 01/28/23 15:20 20 104/55 (71) 100 OxyMask 2.00 01/28/23 15:15 OxyMask 2.00 01/28/23 15:10 20 112/64 (80) 100 OxyMask 2.00 01/28/23 15:00 OxyMask 3.00 01/28/23 15:00 97 Room Air 01/28/23 15:00 20 106/54 (71) 100 OxyMask 2.00 01/28/23 14:51 36.6 20 105/62 (76) 100 OxyMask 3.00 01/28/23 14:51 OxyMask 3.00 01/28/23 11:38 36.5 70 17 147/83 (104) 97 Room Air 01/28/23 08:15 36.4 66 17 152/83 (106) 97 Room Air 01/28/23 08:00 98 Room Air I & O 01/29/23 06:59 Intake Total 2600 ml Output Total 2850 ml Balance -250 ml RLE--dressing intact distal pulses sym sensation intact to light touch throughout s/p R femur IM andra mobilize RAMEZ STEPHENSON MD Jan 29, 2023 07:57
[2023-01-29] MEDS ORDERED: LACTOBACILLUS ACIDOPHILUS (PROBIOTIC) CAPSULE PO SCH (08:00)
[2023-01-29 08:05] VITALS: BP 144/65
[2023-01-29] MEDS: DOCUSATE SODIUM 100 MG CAPSULE PO SCH (08:38)
[2023-01-29] MEDS: SENNOSIDES 8.6 MG TABLET PO SCH (08:40)
[2023-01-29] MEDS ORDERED: DICYCLOMINE 10 MG CAPSULE PO SCH (09:00)
[2023-01-29] MEDS ORDERED: ENOXAPARIN 40 MG/0.4 ML SYRINGE SC SCH (09:00)
[2023-01-29] MEDS ORDERED: FOLIC ACID 1 MG TAB PO SCH (09:00)
[2023-01-29] MEDS ORDERED: CALCIUM CARBONATE 500 MG CHEW TABLET PO SCH (09:00)
[2023-01-29] MEDS ORDERED: VITAMIN D3 25 MCG (1,000 UNITS) TABLET PO SCH (09:00)
[2023-01-29] MEDS ORDERED: ASPIRIN enteric coated 81MG TABLET PO SCH (09:00)
[2023-01-29] MEDS ORDERED: PREGABALIN 50 MG CAPSULE PO SCH (09:00)
--- NOTE | 2023-01-29 09:09 | Occupational Therapy Eval ---
OT Evaluation-General/PLF Medical Diagnosis Admission Date Jan 27, 2023 at 21:42 Medical Diagnosis: fall,RLEfx Onset Date: Jan 27, 2023 Therapy Diagnosis Therapy Diagnosis: s/pIM nail Precautions Precautions/Isolations: Standard Precautions Weight Bear Status Weight Bearing Restriction: Partial Weight Bearing (50%) Referral Referral Reason: Activity Tolerance, Self Care, Evaluation/Treatment Medical History Additional Medical History 72 yo F with a PMH of HTN, anemia and neuropathy who presented to the ED ye sterday By EMS from home with a cc of right thigh pain due to a fall she'd sustained roughly 1 hour prior. Per EMS, the patient has an obvious femur deformity necessitated placement of a traction splint which improved alignement. Patient denied hitting or head or use of blood thinners other than aspirin. XR demonstrated proximal femur fracture without other injury and CT spine was negative for acute traumatic process. She was given dilaudid, valium and IVF and admitted inpatient for surgical evaluation. Current History Anxiety,inability to focus on current issue. Neuropathy Social History Home: Single Level Current Living Status: Alone (Spouse in [place], brother expiired in [place]) has intermittent family help however no one hourly or consistent ADL-Prior Level of Function SCALE: Activities may be completed with or without assistive devices. 0-Daqekilrmu-zpzjgcx completes the activity by him/herself with no assistance from a helper. 5-Set-up or Clean-up Assistance-helper sets up or cleans up; patient completes activity. [place] assists only prior to or following the activity. 4-Supervision or Touching Assistance-helper provides verbal cues and/or touching/steadying and/or contact guard assistance as patient completes activity. Assistance may be provided throughout the activity or intermittently. 3-Partial/Moderate Assistance-helper does LESS THAN HALF the effort. [place] lifts, holds or supports trunk or limbs, but provides less than half the effort. 2-Substantial/Maximal Assistance-helper does MORE THAN HALF the effort. [place] lifts or holds trunk or limbs and provides more than half the effort. 9-Jdckkwvbh-wypvmc does ALL the effort. Patient does none of the effort to complete the activity. Or, the assistance of 2 or more helpers is required for the patient to complete the activity. If activity was not attempted, code reason: 7-Patient Refused. 9-Not Applicable-not attempted and the patient did not perform the activity before the current illness, exacerbation or injury. 10-Not Attempted due to Environmental Limitations-(lack of equipment, weather restraints, etc.). 88-Not Attempted due to Medical Conditions or Safety Concerns. ADL PLOF Comments Independent I/ADLS at home, has cats Self Care: Independent Functional Cognition: Independent Drive Self: Yes OT Current Status Subjective AGREEABLE TO OT Pain Numeric Pain Scale: 8 Location: Right, Incisional Location Body Site: Hip Comment: perseveratesonneuropathy issues and has difficulty focusing on pain control Mental Status/Objective Patient Orientation: Person, Place, Time, Situation Attachments: Kelsey Catheter Current Hand Dominance: Right Upper Extremity ROM BUE ROM WFLS Upper Extremity Coordination BUE FMC WFL /GMC BUE WFLS Upper Extremity Sensation Neuropathy Upper Extremity Strength BUE 4/5 ADL-Treatment Eating (QC): 6 Oral Hygiene (QC): 4 (standing, c/o seeing black spots and need to sit down) Shower/Bathe Self (QC): 7 Upper Body Dressing (QC): 4 (does not weight shift on pelvis to WB on right side during UB ADLS) Lower Body Dressing (QC): 2 On/Off Footwear (QC): 2 Toileting Hygiene (QC): 3 Education OT Patient Education: Correct positioning, Modified ADL techniques, Progress toward Goal/Update tx plan, Purpose of tx/functional activities, Reviewed precautions, Rehab process, Safety issues, Transfer techniques, Use of adapted equipment Teaching Recipient: Patient Teaching Methods: Demonstration, Discussion Response to Teaching: Verbalize Understanding, Reinforcement Needed OT Prison Goals Crna Goals Eating (QC): 6 Oral Hygiene (QC): 6 Toileting Hygiene (QC): 6 Shower/Bathe Self (QC): 6 Upper Body Dressing (QC): 6 Lower Body Dressing (QC): 6 On/Off Footwear (QC): 6 1=Demonstrate adherence to instructed precautions during ADL tasks. 2=Patient will verbalize/demonstrate understanding of assistive devices/modifications for ADL. 3=Patient will improve strength/tolerance for activity to enable patient to perform ADL's. OT Education/Plan Problem List/Assessment Assessment: Decreased Activ Tolerance, Decreased Safety Aware, Decreased UE Strength, Impaired Bed Mobility, Impaired Cognition, Impaired Funct Balance, Impaired I ADL's, Impaired Self-Care Skills Discharge Recommendations Plan/Recommendations: Continue POC Equpiment Recommendations-D/C: Cluster Bore Operator Treatment Plan/Plan of Care Treatment,Training & Education: Yes Patient would benefit from OT for education, treatment and training to promote independence in ADL's, mobility, safety and/or upper extremity function for ADL's. Plan of Care: ADL Retraining, Cognitive Retraining, Concurrent Therapy, Functional Mobility, Group Exercise/Act as Ind, UE Neuromus Re-Ed/Coord Treatment Duration: Feb 06, 2023 Frequency: 3 times per week (3-5 times per week) Time Start Time: 08:12 Stop Time: 08:35 DATE: Jan 29, 2023 Total Time Billed (hr/min): 23 Billed Treatment Time EVM, JOBY 23 min ROGER MILLER OT Jan 29, 2023 09:09
--- NOTE | 2023-01-29 09:39 | Physical Therapy Evaluation ---
PT Evaluation-General Medical Diagnosis Admission Date Jan 27, 2023 at 21:42 Medical Diagnosis: fall,RLEfx Onset Date: Jan 27, 2023 Therapy Diagnosis Therapy Diagnosis: generalized weakness/impaired mobility Precautions Precautions/Isolations: Standard Precautions Weight Bear Status Right Lower Extremity: Right Partial Weight Bearing Left Lower Extremity: Left Full Weight Bearing Referral Physician: Adolfo Reason for Referral: Evaluation/Treatment Medical History Pertinent Medical History: HTN Current History EMs secondary to missed a step and fell Social History Home: Single Level Current Living Status: Alone (Spouse in [place], brother expiired in [place]) Entry Into Home: Stairs With Railing PT Steps Into Home: 5 Prior Prior Level of Function SCALE: Activities may be completed with or without assistive devices. 3-Wpagrbqisy-qyeaipv completes the activity by him/herself with no assistance from a helper. 5-Set-up or Clean-up Assistance-helper sets up or cleans up; patient completes activity. [employer] assists only prior to or following the activity. 4-Supervision or Touching Assistance-helper provides verbal cues and/or touching/steadying and/or contact guard assistance as patient completes activity. Assistance may be provided throughout the activity or intermittently. 3-Partial/Moderate Assistance-helper does LESS THAN HALF the effort. [employer] lifts, holds or supports trunk or limbs, but provides less than half the effort. 2-Substantial/Maximal Assistance-helper does MORE THAN HALF the effort. [employer] lifts or holds trunk or limbs and provides more than half the effort. 9-Viidojbln-cifllo does ALL the effort. Patient does none of the effort to complete the activity. Or, the assistance of 2 or more helpers is required for the patient to complete the activity. If activity was not attempted, code reason: 7-Patient Refused. 9-Not Applicable-not attempted and the patient did not perform the activity before the current illness, exacerbation or injury. 10-Not Attempted due to Environmental Limitations-(lack of equipment, weather restraints, etc.). 88-Not Attempted due to Medical Conditions or Safety Concerns. Bed Mobility: 6 Transfers (B,C,W/C): 6 Gait: 6 Stairs: 6 Indoor Mobility (Ambulation): Independent Stairs: Independent Prior Devices Use: None PT Evaluation-Current Subjective Patient very talkative and agrees to therapy. Pain Numeric Pain Scale: 10-Worst Possible Pain Location: Right Location Body Site: Hip Pain Description: Acute Objective Attachments: Kelsey Catheter ROM/Strength ROM Lower Extremities right LE limited due to pain/left LE WFL Strength Lower Extremities right LE 3-/5 grossly/;left LE 3+/5 grossly Integumentary/Posture Bladder Incontinence: Kelsey Cath Posture WFL Neuromuscular (Tone, Coordination, Reflexes) grossly intact Sensory Vision: Functional Hearing: Functional Hand Dominance: Right Transfers Lying to Sitting/Side of Bed(Q: 2 Sit to Stand (QC): 2 Chair/Yyx-dc-Eddps Xfer(QC): 2 Gait Mode of Locomotion: Walk Anticipated Mode of Locomotion: Walk Distance: 3 steps Gait Assistive Device: FWW Comments/Gait Description able to take 3 steps with assist due to weight bearing status. Balance Sitting Static: Fair Sitting Dynamic: Fair Standing Static: Poor Standing Dynamic: Poor Assessment/Needs Patient will benefit from skilled PT to address functional strength and mobility to improve current LOF. Patient appears very anxious. Agrees to ARU if she qualifies. Patient will benefit from post acute PT. Rehab Potential: Fair PT Refinery [employer] Goals Mcfp Goals PT Mcfp Goals Time Frame: Feb 21, 2023 Roll Left & Right (QC): 4 Sit to Lying (QC): 4 Lying-Sitting on Side/Bed(QC): 4 Sit to Stand (QC): 4 Chair/Owb-hv-Mvlzj Xfer(QC): 4 Toilet Transfer (QC): 4 Walk 10 feet (QC): 4 Walk 50ft with 2 Turns (QC): 4 PT Plan Problem List Problem List: Activity Tolerance, Functional Strength, Safety, Balance, Gait, Transfer, Bed Mobility Treatment/Plan Treatment Plan: Continue Plan of Care Treatment Plan: Bed Mobility, Education, Functional Activity Jan, Functional Strength, Gait, Safety, Therapeutic Exercise, Transfers Treatment Duration: Feb 21, 2023 Frequency: 11 times per week Estimated Hrs Per Day: .5 hour per day Time Time In: 818 Time Out: 834 DATE: Jan 29, 2023 Total Billed Treatment Time: 16 Total Billed Treatment 1 visit [facility] 16 min PEGGY HOWARD PT Jan 29, 2023 09:39
--- NOTE | 2023-01-29 10:32 | Discharge Summary ---
Diagnosis/Chief Complaint Date of Admission Jan 27, 2023 at 21:42 Date of Discharge Discharge Date: Jan 29, 2023 Discharge Diagnosis Right femoral fracture Reason Hospital Visit chief complaint: Fall with right hip fracture HPI: This is a 72-year-old female who has a past medical history of neuropathy who presented to the ER after sustaining a fall. She was found to have a right femoral fracture and will be repaired today. Discharge Summary Discharge Physical Examination Allergies: Coded Allergies: clindamycin (Verified Allergy, Unknown, 01/27/23) Vitals & I&Os Vital Signs Date Time Temp Pulse Resp B/P (MAP) Pulse Ox O2 Delivery O2 Flow Rate FiO2 01/29/23 11:23 37.2 77 18 144/65 98 Room Air 01/28/23 15:20 2.00 01/27/23 22:59 21 General Appearance: Alert, Oriented X3, Cooperative Hospital Course Was the Problem List Reviewed?: Yes Vilma is a 72 yo F with a PMH of HTN, chronic anemia and neuropathy who presented to the ED yesterday by EMS from home with a chief compalint of right thigh pain following a fall she had sustained roughly 1 hour prior. Per EMS, the patient has an obvious femur deformity necessitated placement of a traction splint which improved alignement. Patient denied hitting or head or use of blood thinners other than aspirin. An XR demonstrated proximal femur fracture without other injury and CT spine was negative for acute traumatic process. She was given dilaudid, valium and IVF and admitted inpatient for surgical evaluation. On day 2 of hospitalization the patient underwent right femur intramedullary nail placement without complications. On day 3 of hospitalization the patient was discharged to inpatient rehab. IKER ROSENTHAL Labs (last 24 hrs) Laboratory Tests 01/27/23 19:10: White Blood Count 6.8, Red Blood Count 4.45, Hemoglobin 12.7, Hematocrit 38, Mean Corpuscular Volume 86, Mean Corpuscular Hemoglobin 29, Mean Corpuscular Hemoglobin Concent 33, Red Cell Distribution Width 15.0H, Platelet Count 490H, Mean Platelet Volume 8.7L, Immature Granulocyte % (Auto) 0, Neutrophils (%) (Auto) 60, Lymphocytes (%) (Auto) 27, Monocytes (%) (Auto) 10, Eosinophils (%) (Auto) 2, Basophils (%) (Auto) 0, Neutrophils # (Auto) 4.1, Lymphocytes # (Auto) 1.9, Monocytes # (Auto) 0.7, Eosinophils # (Auto) 0.1, Basophils # (Auto) 0.0, Immature Granulocyte # (Auto) 0.0, Percent Immature Platelet Fraction 1.2, Prothrombin Time 12.2, INR Comment 0.9, Activated Partial Thromboplast Time 23L, Sodium Level 132L, Potassium Level 3.7, Chloride Level 103, Carbon Dioxide Level 18L, Anion Gap 11, Blood Urea Nitrogen 11, Creatinine 0.82, Estimat Glomerular Filtration Rate 75, BUN/Creatinine Ratio 13, Glucose Level 125H, Calcium Level 9.6, Corrected Calcium 9.5, Magnesium Level 2.1, Total Bilirubin 0.4, Aspartate Amino Transf (AST/SGOT) 26, Alanine Aminotransferase (ALT/SGPT) 17, Alkaline Phosphatase 103, Total Protein 7.0, Albumin 4.1, Serum Alcohol < 10 01/27/23 19:34: Urine Color YELLOW, Urine Clarity CLEAR, Urine pH 6.0, Urine Specific [address] 1.015L, Urine Protein NEGATIVE, Urine Glucose (UA) NEGATIVE, Urine Ketones NEGATIVE, Urine Nitrite NEGATIVE, Urine Bilirubin NEGATIVE, Urine Urobilinogen 0.2, Urine Leukocyte Esterase NEGATIVE, Urine RBC (Auto) NEGATIVE, Urine RBC NONE, Urine WBC NONE, Urine Squamous Epithelial Cells NONE, Urine Crystals NONE, Urine Bacteria TRACE, Urine Casts NONE, Urine Mucus NEGATIVE, Urine Culture Indicated NO, Urine Opiates Screen NEGATIVE, Urine Oxycodone Screen NEGATIVE, Urine Methadone Screen NEGATIVE, Urine Barbiturates Screen NEGATIVE, Ur Tricyclic Antidepressants Screen NEGATIVE, Urine Phencyclidine Screen NEGATIVE, Urine Amphetamines Screen NEGATIVE, Urine Methamphetamines Screen NEGATIVE, Urine Benzodiazepines Screen NEGATIVE, Urine Cocaine Screen NEGATIVE, Urine Cannabinoids Screen NEGATIVE 01/28/23 05:35: White Blood Count 6.8, Red Blood Count 3.92, Hemoglobin 11.1L, Hematocrit 34L, Mean Corpuscular Volume 86, Mean Corpuscular Hemoglobin 28, Mean Corpuscular Hemoglobin Concent 33, Red Cell Distribution Width 14.9H, Platelet Count 416H, Mean Platelet Volume 9.1, Immature Granulocyte % (Auto) 0, Neutrophils (%) (Auto) 76H, Lymphocytes (%) (Auto) 13, Monocytes (%) (Auto) 10, Eosinophils (%) (Auto) 1, Basophils (%) (Auto) 0, Neutrophils # (Auto) 5.2, Lymphocytes # (Auto) 0.9L, Monocytes # (Auto) 0.7, Eosinophils # (Auto) 0.1, Basophils # (Auto) 0.0, Immature Granulocyte # (Auto) 0.0 01/28/23 05:43: Sodium Level 132L, Potassium Level 4.2, Chloride Level 105, Carbon Dioxide Level 22, Anion Gap 5, Blood Urea Nitrogen 10, Creatinine 0.75, Estimat Glomerular Filtration Rate 84, BUN/Creatinine Ratio 13, Glucose Level 96, Calcium Level 8.5, Corrected Calcium 9.2, Total Bilirubin 0.4, Aspartate Amino Transf (AST/SGOT) 22, Alanine Aminotransferase (ALT/SGPT) 14, Alkaline Phosphatase 83, Total Protein 5.3L, Albumin 3.1L 01/29/23 05:09: White Blood Count 8.6, Red Blood Count 3.11L, Hemoglobin 9.0L, Hematocrit 27L, Mean Corpuscular Volume 86, Mean Corpuscular Hemoglobin 29, Mean Corpuscular Hem oglobin Concent 34, Red Cell Distribution Width 15.2H, Platelet Count 372, Mean Platelet Volume 9.3, Immature Granulocyte % (Auto) 0, Neutrophils (%) (Auto) 85H , Lymphocytes (%) (Auto) 7L, Monocytes (%) (Auto) 8, Eosinophils (%) (Auto) 0, Basophils (%) (Auto) 0, Neutrophils # (Auto) 7.3, Lymphocytes # (Auto) 0.6L, Monocytes # (Auto) 0.7, Eosinophils # (Auto) 0.0, Basophils # (Auto) 0.0, Immature Granulocyte # (Auto) 0.0, Sodium Level 131L, Potassium Level 4.1, Chloride Level 104, Carbon Dioxide Level 21, Anion Gap 6, Blood Urea Nitrogen 8, Creatinine 0.78, Estimat Glomerular Filtration Rate 80, BUN/Creatinine Ratio 10, Glucose Level 127H, Calcium Level 7.9L, Corrected Calcium 8.8, Total Bilirubin 0.5, Aspartate Amino Transf (AST/SGOT) 20, Alanine Aminotransferase (ALT/SGPT) 11, Alkaline Phosphatase 73, Total Protein 4.9L, Albumin 2.9L Microbiology 01/28/23 MRSA Screen - Final, Complete MRSA not isolated Pending Labs Microbiology Date/Time Source Procedure Growth Status 01/28/23 08:50 Nasal MRSA Screen - Final MRSA not isolated Complete Laboratory Tests 01/27/23 19:10: White Blood Count 6.8, Red Blood Count 4.45, Hemoglobin 12.7, Hematocrit 38, Mean Corpuscular Volume 86, Mean Corpuscular Hemoglobin 29, Mean Corpuscular Hemoglobin Concent 33, Red Cell Distribution Width 15.0, Platelet Count 490, Mean Platelet Volume 8.7, Immature Granulocyte % (Auto) 0, Neutrophils (%) (Auto) 60, Lymphocytes (%) (Auto) 27, Monocytes (%) (Auto) 10, Eosinophils (%) (Auto) 2, Basophils (%) (Auto) 0, Neutrophils # (Auto) 4.1, Lymphocytes # (Auto) 1.9, Monocytes # (Auto) 0.7, Eosinophils # (Auto) 0.1, Basophils # (Auto) 0.0, Immature Granulocyte # (Auto) 0.0, Percent Immature Platelet Fraction 1.2, Prothrombin Time 12.2, INR Comment 0.9, Activated Partial Thromboplast Time 23, Sodium Level 132, Potassium Level 3.7, Chloride Level 103, Carbon Dioxide Level 18, Anion Gap 11, Blood Urea Nitrogen 11, Creatinine 0.82, Estimat Glomerular Filtration Rate 75, BUN/Creatinine Ratio 13, Glucose Level 125, Calcium Level 9.6, Corrected Calcium 9.5, Magnesium Level 2.1, Total Bilirubin 0.4, Aspartate Amino Transf (AST/SGOT) 26, Alanine Aminotransferase (ALT/SGPT) 17, Alkaline Phosphatase 103, Total Protein 7.0, Albumin 4.1, Serum Alcohol < 10 01/27/23 19:34: Urine Color YELLOW, Urine Clarity CLEAR, Urine pH 6.0, Urine Specific [address] 1.015, Urine Protein NEGATIVE, Urine Glucose (UA) NEGATIVE, Urine Ketones NEGATIVE, Urine Nitrite NEGATIVE, Urine Bilirubin NEGATIVE, Urine Urobilinogen 0.2, Urine Leukocyte Esterase NEGATIVE, Urine RBC (Auto) NEGATIVE, Urine RBC NONE, Urine WBC NONE, Urine Squamous Epithelial Cells NONE, Urine Crystals NONE, Urine Bacteria TRACE, Urine Casts NONE, Urine Mucus NEGATIVE, Urine Culture Indicated NO, Urine Opiates Screen NEGATIVE, Urine Oxycodone Screen NEGATIVE, Urine Methadone Screen NEGATIVE, Urine Barbiturates Screen NEGATIVE, Ur Tricyclic Antidepressants Screen NEGATIVE, Urine Phencyclidine Screen NEGATIVE, Urine Amphetamines Screen NEGATIVE, Urine Methamphetamines Screen NEGATIVE, Urine Benzodiazepines Screen NEGATIVE, Urine Cocaine Screen NEGATIVE, Urine Cannabinoids Screen NEGATIVE 01/28/23 05:35: White Blood Count 6.8, Red Blood Count 3.92, Hemoglobin 11.1, Hematocrit 34, Mean Corpuscular Volume 86, Mean Corpuscular Hemoglobin 28, Mean Corpuscular Hemoglobin Concent 33, Red Cell Distribution Width 14.9, Platelet Count 416, Mean Platelet Volume 9.1, Immature Granulocyte % (Auto) 0, Neutrophils (%) (Auto) 76, Lymphocytes (%) (Auto) 13, Monocytes (%) (Auto) 10, Eosinophils (%) (Auto) 1, Basophils (%) (Auto) 0, Neutrophils # (Auto) 5.2, Lymphocytes # (Auto) 0.9, Monocytes # (Auto) 0.7, Eosinophils # (Auto) 0.1, Basophils # (Auto) 0.0, Immature Granulocyte # (Auto) 0.0 01/28/23 05:43: Sodium Level 132, Potassium Level 4.2, Chloride Level 105, Carbon Dioxide Level 22, Anion Gap 5, Blood Urea Nitrogen 10, Creatinine 0.75, Estimat Glomerular Filtration Rate 84, BUN/Creatinine Ratio 13, Glucose Level 96, Calcium Level 8.5, Corrected Calcium 9.2, Total Bilirubin 0.4, Aspartate Amino Transf (AST/SGOT) 22, Alanine Aminotransferase (ALT/SGPT) 14, Alkaline Phosphatase 83, Total Protein 5.3, Albumin 3.1 01/29/23 05:09: White Blood Count 8.6, Red Blood Count 3.11, Hemoglobin 9.0, Hematocrit 27, Mean Corpuscular Volume 86, Mean Corpuscular Hemoglobin 29, Mean Corpuscular Hemoglobin Concent 34, Red Cell Distribution Width 15.2, Platelet Count 372, Mean Platelet Volume 9.3, Immature Granulocyte % (Auto) 0, Neutrophils (%) ( Auto) 85, Lymphocytes (%) (Auto) 7, Monocytes (%) (Auto) 8, Eosinophils (%) (Auto) 0, Basophils (%) (Auto) 0, Neutrophils # (Auto) 7.3, Lymphocytes # (Auto) 0.6, Monocytes # (Auto) 0.7, Eosinophils # (Auto) 0.0, Basophils # (Auto) 0.0, Immature Granulocyte # (Auto) 0.0, Sodium Level 131, Potassium Level 4.1, Chloride Level 104, Carbon Dioxide Level 21, Anion Gap 6, Blood Urea Nitrogen 8, Creatinine 0.78, Estimat Glomerular Filtration Rate 80, BUN/Creatinine Ratio 10, Glucose Level 127, Calcium Level 7.9, Corrected Calcium 8.8, Iron Level [Pending], Total Bilirubin 0.5, Aspartate Amino Transf (AST/SGOT) 20, Alanine Aminotransferase (ALT/SGPT) 11, Alkaline Phosphatase 73, Total Protein 4.9, Albumin 2.9, Vitamin B12 Level [Pending] Discharge Home Medications: Active Scripts Active Reported Folic Acid 1 Mg Tablet 1 Mg PO DAILY Calcium (Calcium Carbonate) 500 Mg Calcium (1250 Mg) Tablet 500 Mg PO DAILY Aspirin EC (Aspirin) 81 Mg Tablet.dr 81 Mg PO DAILY Vitamin D3 (Cholecalciferol (Vitamin D3)) 25 Mcg (1000 Unit) Tablet 25 Mcg PO DAILY Probiotic (Lactobacillus Acidophilus) 10 Billion Cell Capsule 1 Each PO BID Diclofenac Sodium 75 Mg Tablet.dr 75 Mg PO BID PRN Dicyclomine HCl 20 Mg Tablet 20 Mg PO BID Pregabalin 50 Mg Capsule 50 Mg PO DAILY Lisinopril 20 Mg Tablet 20 Mg PO DAILY Levothyroxine Sodium 75 Mcg Tablet 75 Mcg PO DAILY Instructions to patient/family Please see electronic discharge instructions given to patient. Clinical Quality Measures DVT/VTE Risk/Contraindication: Contraindications-Pharm: Other *list below* Other: or REINA RAMOS DO Jan 29, 2023 10:31
[2023-01-29 11:23] VITALS: BP 144/65
--- NOTE | 2023-01-29 12:44 | Progress Note ---
IKER ROSENTHAL 01/29/23 1244: Progress Note Vilma is a 72 yo F with a PMH of HTN, chronic anemia and neuropathy who presented to the ED yesterday by EMS from home with a chief compalint of right thigh pain following a fall she had sustained roughly 1 hour prior. Per EMS, the patient has an obvious femur deformity necessitated placement of a traction sp lint which improved alignement. Patient denied hitting or head or use of blood thinners other than aspirin. An XR demonstrated proximal femur fracture without other injury and CT spine was negative for acute traumatic process. She was given dilaudid, valium and IVF and admitted inpatient for surgical evaluation. On day 2 of hospitalization the patient underwent right femur intramedullary nail placement without complications. On day 3 of hospitalization the patient was discharged to inpatient rehab. BRENDA RAMOS DO 01/30/23 0449: Supervisory-Addendum Brief Verification & Attestation Participated in pt care: history, MDM, physical Personally performed: exam, history, MDM, supervision of care Care discussed with: Medical Student Procedures: n/a Results interpretation: Verified all documentation Verification and Attestation of Medical Student E/M Service A medical student performed and documented this service in my presence. I reviewed and verified all information documented by the medical student and made modifications to such information, when appropriate. I personally performed the physical exam and medical decision making. Brenda Ramos, Jan 30, 2023,04:49 IKER ROSENTHAL Jan 29, 2023 12:44 BRENDA RAMOS DO Jan 30, 2023 04:49
== END 2023-01-29 11:26 | DRG 482 ==
LOC: EDUNIT# 19:03 → ER 19:05 → 4TH 21:42
PROVIDERS: ADMIT Internal Medicine; ATTEND Internal Medicine
PROC: 0QS836Z Reposition Right Femoral Shaft with Intramedullary Internal Fixation Device, Percutaneous Approach (ICD-10-PCS; principal; 2023-01-28 13:22)
DX: S72.301A Unspecified fracture of shaft of right femur, initial encounter for closed fracture (principal); I10 Essential (primary) hypertension; G62.9 Polyneuropathy, unspecified; R91.8 Other nonspecific abnormal finding of lung field; D64.9 Anemia, unspecified; Z87.891 Personal history of nicotine dependence; Z85.3 Personal history of malignant neoplasm of breast; Z79.82 Long term (current) use of aspirin; Z79.899 Other long term (current) drug therapy; Z88.1 Allergy status to other antibiotic agents; W10.9XXA Fall (on) (from) unspecified stairs and steps, initial encounter; Y92.008 Other place in unspecified non-institutional (private) residence as the place of occurrence of the external cause
CPT/HCPCS: 36415; 71045; 72128; 72131; 72170; 73552; 76000; 80053; 80306; 80320; 81000; 82607; 83540; 83735; 85025; 85610; 85730; 87081; 93041; 94664; 94760; 96361; 96374; 96375